=== PATIENT | male | born 1990 | race Caucasian/White ===

== ENCOUNTER 2016-12-17 11:14 | Outpatient (CLI) ==
[2016-01-31 23:49] VITALS: BMI 24.2
== END 2016-12-17 11:15 | disposition home or self-care (01) ==
LOC: LAB 11:14
PROVIDERS: ATTEND Nurse Practitioner Family
DX: J02.9 Acute pharyngitis, unspecified (principal)
CPT/HCPCS: 87651; 87880

== ENCOUNTER 2017-03-02 03:21 | Outpatient (CLI) ==
[2016-01-31 23:49] VITALS: BMI 24.2
== END 2017-03-02 03:22 | disposition home or self-care (01) ==
LOC: AMBL 03:21
PROVIDERS: ATTEND Family Medicine
DX: R20.0 Anesthesia of skin (principal); F15.10 Other stimulant abuse, uncomplicated; E11.9 Type 2 diabetes mellitus without complications; R00.0 Tachycardia, unspecified; F41.9 Anxiety disorder, unspecified

== ENCOUNTER 2017-07-31 10:29 | Emergency (ER) ==
[2017-07-31 10:29] VITALS: BMI 24.2
[2017-07-31 10:38] VITALS: BP 153/113; TEMP 99.5
--- NOTE | 2017-07-31 11:04 | ED.PDOC ---
General ED Provider: Dr. KRYSTEN ORDAZ Chief Complaint: Weakness Stated Complaint: Patient did methamphetamine early this morning. Immediately felt ill, weak, left side numbness, and difficulty articulating speech. Initially had sharp chest pains which have eased off. Mildly SOB. Pt did meth several months ago with same results. Time Seen by Physician: 11:00 Mode of Arrival: Wheelchair Information Source: Patient Exam Limitations: No limitations Primary Care Provider: CELSA WINSTON Nursing and Triage Documentation Reviewed and Agree: Yes Neurological Complaint Exam - Weakness Complaint/Exam Onset: Sudden Duration: less than 10 hours Symptoms Are: Still present (lessened but not resolved) Timing: Constant Episodes Lasting: Hours Initial Severity: Severe Current Severity: Moderate Character: Reports: Lightheaded, Weak Aggravating: Reports: Position change Alleviating: Reports: None Associated Signs and Symptoms: Reports: Chest pain, Short of air, Palpitations, Unsteady gait Related History: Similar episode (same symptoms last time he did methamphetamine ) Cardiac Risk Factors: Reports: Smoking, Diabetes CVA Risk Factors: Reports: Diabetes, Smoking JVD Present: No Carotid Bruit Present: No Nystagmus Present: No Gag Reflex Present: Yes Meningeal Signs Positive: No Focal Weakness: Present: None (patient says his left side feels weak and his speech is slurred. Neither is currently evident) Focal Sensory Loss: Present: None Gait: Unsteady [id number]: Normal Findings Romberg Test Positive: No Heel to Toe Normal: No Martina-Hallpike Test Positive: No Differential Diagnoses: CAD, MS, Dysrhythmia, Other (reaction to methamphetamine ) Quality Indicators for Cardiac Chest Pain: EKG in 10min. Quality Indicators for AMI: EKG in 10min., Advised to stop smoking Quality Indicator For Non-Traumatic Chest Pain/Syncope: EKG Performed Review of Systems - Review Of Systems Constitutional: Reports: Malaise, Weakness Eyes: Reports: No symptoms Ears, Nose, Mouth, Throat: Reports: No symptoms Respiratory: Reports: Short of air Cardiac: Reports: Chest pain, Lightheadedness, Palpitations GI: Reports: No symptoms : Reports: No symptoms Musculoskeletal: Reports: No symptoms Skin: Reports: No symptoms Neurological: Reports: Numbness, Weakness, Other (dysarthria) Endocrine: Reports: No symptoms Hematologic/Lymphatic: Reports: No symptoms All Other Systems: Reviewed and Negative Past Medical History - Past Medical History Endocrine: Reports: DM 1 (Poorly controlled DM. Last 2 [id number] were 14 & 9.), Other Cardiovascular: Reports: None Respiratory: Reports: None Hematological: Reports: None Gastrointestinal: Reports: None Genitourinary: Reports: None Neuro/Psych: Reports: None, Other (diabetic peripheral neuropathy) Musculoskeletal: Reports: None Cancer: Reports: None - Surgical History General Surgical History: Reports: None - Family History Family History: Reports: Unknown - Social History Smoking Status: Current every day smoker, Vaping Hx Substance Use: Yes (alcohol/meth) Alcohol Screening: None Physical Exam - Physical Exam Appearance: Well-appearing, No pain distress, Well-nourished Ill-appearing: None Pain Distress: None Eyes: HAY, EOMI, Conjunctiva clear ENT: Ears normal, Nose normal, Oropharynx normal Respiratory: Airway patent, Breath sounds clear, Breath sounds equal, Respirations nonlabored Cardiovascular: RRR, Pulses normal, No rub, No murmur GI/: Soft, Nontender, No masses, Bowel sounds normal, No Organomegaly Musculoskeletal: Normal strength, ROM intact, No edema, No calf tenderness Skin: Warm, Dry, Normal color Neurological: Sensation intact, Motor intact, Reflexes intact, Cranial nerves intact, Alert, Oriented Psychiatric: Affect appropriate, Mood appropriate Interpretation - Radiology Interpretation Radiology Interpretation By: Radiologist Radiology Results: Negative Exam Interpreted: CT Scan Xray Comments: Head CT - EKG Interpretation Time of EKG #1: 11:13 Rate: Tachy (HR 116) Rhythm: Sinus Ectopy: None [place]: NL ST Segment: Normal Interpretation: cannot r/o IWMI age undetermined. Incomplete RBBB Re-Evaluation - Re-Evaluation Time of Re-Evaluation: 14:30 Status: Improved Vital Signs Stable: Yes Appearance: NAD Lungs: Clear Skin: Warm and Dry Neuro: Other (very groggy. Accucheck: 67. Patient given sweetened OJ and lunch) CV: RRR Critical Care Note - Critical Care Note Total Time (mins): 0 Course - Course Hematology/Chemistry: 07/31/17 11:25 07/31/17 11:25 Orders, Labs, Meds: Lab Review 07/31/17 11:25 WBC 8.97 RBC 4.85 Hgb 15.3 Hct 43.2 MCV 89.1 MCH 31.5 H MCHC 35.4 RDW Coeff of Jyothi 12.7 Plt Count 310 Immature Gran % (Auto) 0.2 Neut % (Auto) 49.0 Lymph % (Auto) 42.6 [place] % (Auto) 7.1 Eos % (Auto) 0.8 Baso % (Auto) 0.3 Immature Gran # (Auto) 0.0 Neut # 4.4 Lymph # 3.8 H [place] # 0.6 Eos # 0.1 Baso # 0.0 Sodium 140 Potassium 3.4 L Chloride 106 Carbon Dioxide 25 Anion Gap 12.4 BUN 6 L Creatinine 0.78 Estimated GFR (MDRD) 119.00 BUN/Creatinine Ratio 7.69 Glucose 181 H Calcium 9.0 Total Bilirubin 0.71 AST 17 ALT 21 Alkaline Phosphatase 69 Total Protein 6.6 Albumin 3.9 Globulin 2.7 Albumin/Globulin Ratio 1.44 Orders Category Date Time Status EKG-(ED ONLY) Stat CARDIO 07/31/17 11:07 Completed CBC W/ AUTO DIFF Stat LAB 07/31/17 11:25 Completed COMPREHENSIVE METABOLIC PANEL Stat LAB 07/31/17 11:25 Completed URINALYSIS C & S IF INDICATED Stat LAB 07/31/17 11:06 Uncollected URINE DRUG SCREEN (RAPID FOR ED) [DRUG SCREEN, URINE, LAB 07/31/17 11:07 Uncollected RAPID] Stat Dextrose 50 % in Water [Dextrose 50%-Water Abboject] MEDS 07/31/17 11:10 Discontinued 50 ml .ROUTE .STK-MED ONE Dextrose 50 % in Water [Dextrose 50%-Water Abboject] MEDS 07/31/17 11:10 Discontinued 50 ml IVP ONCE STA Sodium Chloride 0.9% [Sodium Chloride] 1,000 ml MEDS 07/31/17 13:[address] HEAD W/O CONTRAST Stat RADS 07/31/17 11:07 Completed Medications Discontinued Medications Generic Name Dose Route Start Last Admin Trade Name Freq PRN Reason Stop Dose Admin Dextrose 50 ml 07/31/17 11:10 07/31/17 11:15 Dextrose 50%-Water Abboject IVP 07/31/17 11:11 50 ml ONCE STA Administration Sodium Chloride 1,000 mls @ 1,000 mls/hr 07/31/17 13:33 07/31/17 13:41 Sodium Chloride IV 07/31/17 14:32 1,000 mls/hr BOLUS STA Administration Vital Signs: Temp Pulse Resp BP Pulse Ox 07/31/17 10:30 99.5 F 115 H 16 153/113 H 98 Departure - Departure Time of Disposition: 14:53 Disposition: HOME SELF-CARE Discharge Problem: Adverse drug reaction, Hypoglycemia Instructions: Adverse Drug Reaction (ED), Hypoglycemia in a Person with Diabetes (ED) Condition: Good Pt referred to PMD for follow-up: No (Follow up with PCP if no better in 3 days) Allergies/Adverse Reactions: Allergies No Known Allergies Allergy (Verified 07/31/17 10:44) Home Medications: Ambulatory Orders Insulin Glargine,Hum.rec.anlog [Lantus] 38 units SQ DAILY 01/03/16 Insulin Lispro [Humalog] 1 unit SQ QID PRN 01/03/16 Gabapentin 300 mg PO BID 07/31/17
[2017-07-31] MEDS ORDERED: DEXTROSE 50%-WATER ABBOJECT IVP STA (11:10)
[2017-07-31] MEDS ORDERED: DEXTROSE 50%-WATER ABBOJECT ONE (11:10)
[2017-07-31 11:34] LABS: BASOPHILS % (AUTO) 0.3 % (0.0-3.0); EOSINOPHILS # (AUTO) 0.1 K/ul (0.0-0.7); EOSINOPHILS % (AUTO) 0.8 % (0.0-7.0); HEMATOCRIT 43.2 % (42.0-52.0); HEMOGLOBIN 15.3 g/dl (14.0-18.0); IMMATURE GRANULOCYTE % (AUTO) 0.2 % (0.0-5.0); LYMPHOCYTES # (AUTO) 3.8 K/uL (0.60-3.4); LYMPHOCYTES % (AUTO) 42.6 (10.0-50.0); MEAN CORPUSCULAR HEMOGLOBIN 31.5 pg (27.0-31.0); MEAN CORPUSCULAR HGB CONC 35.4 (31.8-35.4); MEAN CORPUSCULAR VOLUME 89.1 fl (80.0-94.0); MONOCYTES # (AUTO) 0.6 K/uL (0.4-2.0); MONOCYTES % (AUTO) 7.1 (0-10); NEUTROPHILS # (AUTO) 4.4 K/ul (2.0-6.9); PLATELET COUNT 310 10^3/uL (140-440); RED BLOOD COUNT 4.85 10^6/ul (4.70-6.10); WHITE BLOOD COUNT 8.97 K/ul (4.2-10.2)
[2017-07-31 11:53] LABS: ALBUMIN 3.9 g/dL (3.4-5.0); ALBUMIN/GLOBULIN RATIO 1.44; ANION GAP 12.4; BILIRUBIN,TOTAL 0.71 mg/dL (0.00-1.20); BUN/CREATININE RATIO 7.69; CREATININE 0.78 mg/dL (0.60-1.10); POTASSIUM 3.4 mmol/L (3.5-5.1); TOTAL PROTEIN 6.6 g/dL (6.4-8.2)
--- NOTE | 2017-07-31 12:22 | CT ---
EXAM: CT head without contrast. HISTORY: Left-sided weakness. Headache. COMPARISON: 03/27/2013. TECHNIQUE: Multiple axial images of the brain were obtained from the skull base through the vertex without intravenous contrast. FINDINGS: There is no intracranial hemorrhage or extraaxial collection. The velasquez-white differentia tion is maintained without evidence for acute large vascular territory infarction. The cortical sul ci and basal cisterns are well visualized. There is no hydrocephalus, mass effect, or midline shift . The paranasal sinuses and mastoid air cells are clear. The calvarium is intact. Since the prior study, there has been no significant interval change. IMPRESSION: No acute intracranial abnormality.
[2017-07-31] MEDS ORDERED: SODIUM CHLORIDE 1,000 ML IV STA (13:33)
== END 2017-07-31 15:36 | disposition home or self-care (01) ==
LOC: ED 10:29
DX: E10.649 Type 1 diabetes mellitus with hypoglycemia without coma (principal); T50.905A Adverse effect of unspecified drugs, medicaments and biological substances, initial encounter; R07.9 Chest pain, unspecified; R06.02 Shortness of breath; R53.1 Weakness; Z79.4 Long term (current) use of insulin; F17.210 Nicotine dependence, cigarettes, uncomplicated
CPT/HCPCS: 36415; 80053; 82962; 85025; 93005; 93010; 96361; 96374; 99283

== ENCOUNTER 2018-05-01 12:36 | Outpatient (CLI) ==
[2018-05-01 12:57] VITALS: BMI 25.8
== END 2018-05-01 12:45 | disposition short-term general hospital (02) ==
LOC: AMBL 12:36
PROVIDERS: ATTEND Emergency Medicine
DX: R56.9 Unspecified convulsions (principal); E11.649 Type 2 diabetes mellitus with hypoglycemia without coma; R40.4 Transient alteration of awareness

== ENCOUNTER 2018-05-01 12:51 | Emergency (ER) ==
[2018-05-01 12:57] VITALS: BP 113/67; TEMP 97.5; BMI 25.8
--- NOTE | 2018-05-01 13:13 | ED.PDOC ---
General ED Provider: Dr. ARMOND BRANHAM Chief Complaint: Diabetes Stated Complaint: Low blood sugar; Stated he sensed his BS was becoming too low , went to get a drink in an attempt to raise it orally but apparrently lost consciounsness and experienced seizure like activity due to low blood glucose level. States this has not occurred in 5-6 years.He Ate breakfast at around 11 AM. Time Seen by Physician: 13:10 Mode of Arrival: Walk-In Information Source: Patient Exam Limitations: No limitations Nursing and Triage Documentation Reviewed and Agree: Yes Does patient meet sepsis criteria?: No System Inflammatory Response Syndrome: Not Applicable Sepsis Protocol: For patient's 13 years and over: Temp is 96.8 and below OR 101 and greater Pulse >90 BPM Resp >20/minute Acutely Altered Mental Status Are patient's symptoms suggestive of a new infection, such as: -Pneumonia -Skin, Soft Tissue -Endocarditis -UTI -Bone, Joint Infection -Implantable Device -Acute Abdominal Infection -Wound Infection -Meningitis -Blood Stream Catheter Infection -Unknown Endocrine Complaint Exam - Diabetic Complication Complaint/Exam Onset/Duration: 2 hrs Timing: Intermittent Initial Severity: Severe Current Severity: Mild Character: Confused, Lethargic (seizure activity) Aggravating: Reports: None Alleviating: Reports: Medications, Home treatment Associated Signs and Symptoms: Reports: Decreased LOC, Polydipsia, Polyuria, Polyphagia Related History: Reports: DM 1 Cardiac Risk Factors: Reports: None CVA Risk Factors: Reports: None Serious Bacterial Infection Risk Factors: Reports: None Related Surgical History: Reports: None Acetone on Breath: No Dry Mucous Membranes: Yes Kussmaul Respirations: No Meningeal Signs: No Focal Weakness: None Focal Sensory Loss: None Nystagmus Present: No Gag Reflex Present: Yes Finger to Nose: Normal Differential Diagnoses: Hypoglycemia Review of Systems - Review Of Systems Constitutional: Reports: Diaphoresis, Weakness, Sweats Eyes: Reports: No symptoms Ears, Nose, Mouth, Throat: Reports: No symptoms Respiratory: Reports: No symptoms Cardiac: Reports: No symptoms GI: Reports: No symptoms : Reports: No symptoms Musculoskeletal: Reports: No symptoms Skin: Reports: No symptoms Neurological: Reports: No symptoms Endocrine: Reports: No symptoms Hematologic/Lymphatic: Reports: No symptoms All Other Systems: Reviewed and Negative Past Medical History - Past Medical History Previously Healthy: No Endocrine: Reports: DM 1 (Poorly controlled DM. Last 2 [id number] were 14 & 9.), Other Cardiovascular: Reports: None Respiratory: Reports: None Hematological: Reports: None Gastrointestinal: Reports: None Genitourinary: Reports: None Neuro/Psych: Reports: None, Other (diabetic peripheral neuropathy) Musculoskeletal: Reports: None Cancer: Reports: None - Surgical History General Surgical History: Reports: None - Family History Family History: Reports: Unknown - Social History Smoking Status: Current every day smoker, Heavy tobacco smoker, Vaping Hx Substance Use: Yes (alcohol/meth) Alcohol Screening: None - Immunizations Tetanus Shot up to Date: Yes Physical Exam - Physical Exam Appearance: Ill-appearing, No pain distress, Well-nourished Ill-appearing: Mild Pain Distress: None Eyes: HAY, EOMI, Conjunctiva clear ENT: Ears normal, Nose normal, Oropharynx normal Respiratory: Airway patent, Breath sounds clear, Breath sounds equal, Respirations nonlabored Cardiovascular: RRR, Pulses normal, No rub, No murmur GI/: Soft, Nontender, No masses, Bowel sounds normal, No Organomegaly Musculoskeletal: Normal strength, ROM intact, No edema, No calf tenderness Skin: Warm, Dry, Normal color Neurological: Sensation intact, Motor intact, Reflexes intact, Cranial nerves intact, Alert, Oriented Psychiatric: Affect appropriate, Mood appropriate Re-Evaluation - Re-Evaluation Time of Re-Evaluation: 14:45 Status: Improved Vital Signs Stable: Yes Appearance: NAD Lungs: Clear Skin: Warm and Dry Neuro: Alert and Oriented X3 CV: RRR Critical Care Note - Critical Care Note Total Time (mins): 60 Course - Course Hematology/Chemistry: 05/01/18 13:20 05/01/18 13:20 Orders, Labs, Meds: Lab Review 05/01/18 05/01/18 05/01/18 13:20 13:20 14:05 WBC 9.39 RBC 4.52 L Hgb 14.5 Hct 41.2 L MCV 91.2 MCH 32.1 H MCHC 35.2 RDW Coeff of Jyothi 13.0 Plt Count 258 Immature Gran % (Auto) 0.7 Neut % (Auto) 55.9 Lymph % (Auto) 32.5 [place] % (Auto) 9.2 Eos % (Auto) 1.1 Baso % (Auto) 0.6 Immature Gran # (Auto) 0.1 Neut # (Auto) 5.3 Lymph # (Auto) 3.1 [place] # (Auto) 0.9 Eos # (Auto) 0.1 Baso # (Auto) 0.1 Sodium 135 L Potassium 4.9 Chloride 102 Carbon Dioxide 23 Anion Gap 14.9 BUN 16 Creatinine 0.78 Estimated GFR (MDRD) 119.00 BUN/Creatinine Ratio 20.51 Glucose 224 H Calcium 8.9 Total Bilirubin 0.2 AST 92 H ALT 133 H Alkaline Phosphatase 65 Total Creatine Kinase 147 CK-MB (CK-2) 2.4 CK-MB (CK-2) % 1.70677 Troponin I < 0.0100 Total Protein 5.9 L Albumin 3.3 L Globulin 2.6 Albumin/Globulin Ratio 1.27 Urine Color Yellow Urine Clarity Clear Urine pH 6.5 Ur Specific [place] 1.015 Urine Protein Negative Urine Glucose (UA) 2+ Urine Ketones Negative Urine Blood Negative Urine Nitrite Negative Urine Bilirubin Negative Urine Urobilinogen 0.2 Ur Leukocyte Esterase Negative Orders Category Date Time Status EKG-(ED ONLY) Stat CARDIO 05/01/18 13:12 Completed CBC W/ AUTO DIFF Stat LAB 05/01/18 13:20 Completed CMP [COMPREHENSIVE METABOLIC PANEL] Stat LAB 05/01/18 13:20 Completed CREATINE KINASE Stat LAB 05/01/18 13:20 Completed TROPONIN I Stat LAB 05/01/18 13:20 Completed UA [URINALYSIS C & S IF INDICATED] Stat LAB 05/01/18 14:05 Completed Vital Signs: Temp Pulse Resp BP Pulse Ox 05/01/18 12:52 97.5 F L 93 H 18 113/67 98 Departure - Departure Time of Disposition: 15:15 Disposition: HOME SELF-CARE Discharge Problem: Insulin adverse reaction, Hypoglycemia due to type 1 diabetes mellitus, Elevated liver enzymes Instructions: Hypoglycemia in a Person with Diabetes (ED) Condition: Good Pt referred to PMD for follow-up: Yes IPMP verified?: No Additional Instructions: Follow up pcp in next week Monitor BS readings 4 times daily and as needed Keep glucose for emerg use Prescriptions: Pen Needle, Diabetic [Bd Ultra-Fine Pen Needle] 1 each QID #100 dis.needle Allergies/Adverse Reactions: Allergies No Known Allergies Allergy (Verified 05/01/18 12:56) Home Medications: Ambulatory Orders Insulin Glargine,Hum.rec.anlog [Lantus] 36 units SQ DAILY 01/03/16 Insulin Lispro [Humalog] 1 unit SQ QID PRN 01/03/16 Gabapentin 300 mg PO BID 07/31/17 Pen Needle, Diabetic [Bd Ultra-Fine Pen Needle] 1 each MC QID #100 dis.needle Disposition Discussed With: Patient, Family
== END 2018-05-01 15:26 | disposition home or self-care (01) ==
LOC: ED 12:51
DX: E10.649 Type 1 diabetes mellitus with hypoglycemia without coma (principal); T38.3X5A Adverse effect of insulin and oral hypoglycemic [antidiabetic] drugs, initial encounter; Z79.4 Long term (current) use of insulin; R94.5 Abnormal results of liver function studies; R55 Syncope and collapse; F17.210 Nicotine dependence, cigarettes, uncomplicated
CPT/HCPCS: 36415; 80053; 81001; 82550; 82553; 84484; 85025; 93005; 93010; 99284